=== PATIENT | female | born 1985 | race Two or more races ===

== ENCOUNTER 2024-01-20 07:04 | Emergency (ER) | payer MEDICAID ==
[~2024-01-20] VITALS: Ht 154.9 cm; Wt 84.5 kg
[2024-01-20 07:22] VITALS: TEMP 98.1
[2024-01-20 08:21] LABS: BASOPHILS % (AUTO) 0.9 % (0.0-2.0); EOSINOPHILS % (AUTO) 1.7 % (1.0-6.0); HEMATOCRIT 39.3 % (36-46); HEMOGLOBIN 13.3 g/dL (12.0-16.0); LYMPHOCYTES # (AUTO) 2.5 K/uL (1.0-4.8); LYMPHOCYTES % (AUTO) 28.4 % (22.0-44.0); MEAN CORPUSCULAR HEMOGLOBIN 29.8 pg (26.0-34.0); MEAN CORPUSCULAR HGB CONC 33.9 G/dL (31.0-37.0); MEAN CORPUSCULAR VOLUME 88 fL (80-100); MONOCYTES # (AUTO) 0.5 K/uL (0.1-1.0); MONOCYTES % (AUTO) 5.4 % (2.0-9.0); NEUTROPHILS # (AUTO) 5.7 K/uL (1.8-7.7); NEUTROPHILS % (AUTO) 63.6 % (40.0-70.0); PLATELET COUNT (AUTO) 288 K/uL (150-450); RED BLOOD CELL COUNT(AUTO) 4.47 MIL/uL (4.00-5.20); RED CELL DISTRIBUTION WIDTH 13.4 % (11.5-14.5); WHITE BLOOD COUNT (AUTO) 8.9 K/uL (4.5-11.0)
[2024-01-20 10:04] VITALS: BP 119/82; PULSE 72; RESP 16
== END 2024-01-20 14:38 | disposition home or self-care (01) ==
LOC: EMS 07:04
DX: O20.0 Threatened abortion (principal); Z3A.08 8 weeks gestation of pregnancy
CPT/HCPCS: 76801; 84702; 85025; 86901; 99284

== ENCOUNTER 2025-02-26 08:35 | Emergency (ER) | payer MEDICAID ==
[~2025-02-26] VITALS: Ht 154.9 cm; Wt 79.5 kg
[2025-02-26 09:46] LABS: PLATELET COUNT (AUTO) 299 K/uL (150-450); RED BLOOD CELL COUNT(AUTO) 4.65 MIL/uL (4.00-5.20); RED CELL DISTRIBUTION WIDTH 13.0 % (11.5-14.5); WHITE BLOOD COUNT (AUTO) 15.0 K/uL (4.5-11.0)
[2025-02-26 09:54] LABS: CALCIUM, TOTAL 8.5 mg/dL (8.8-10.5); CREATININE 0.59 mg/dL (0.60-1.30); GLOMERULAR FILTR. RATE CALC > 60 mL/min (>60); GLUCOSE,RANDOM 126 mg/dL (70-110); SODIUM SERUM 133 mmol/L (136-145); UREA NITROGEN, BLOOD 5 mg/dL (7-18)
[2025-02-26] MEDS: ACETAMINOPHEN 500 MG TABLET PO ONE (10:55)
[2025-02-26] MEDS: LIDOCAINE 5% TRANSDERMAL PATCH TD ONE (10:55)
[2025-02-26 11:52] LABS: APPEARANCE,URINE CLEAR (CLEAR); GLUCOSE, URINE (UA) NEGATIVE (NEGATIVE); LEUKOCYTE ESTERASE ,URINE NEGATIVE (NEGATIVE); NITRATE,URINE NEGATIVE (NEGATIVE); OCCULT BLOOD,URINE TRACE (NEGATIVE); SPECIFIC GRAVITIY, URINE 1.022 (1.003-1.030)
[2025-02-26 12:02] LABS: SQUAMOUS EPITHELIAL CELL,UR Many /LPF (None Seen)
[2025-02-26] MEDS ORDERED: LIDO-57 TP (12:48)
[2025-02-26] MEDS ORDERED: ACET-3385 PO (12:48)
[2025-02-26] MEDS ORDERED: PREN-223 PO (13:55)
[2025-02-26 14:15] VITALS: BP 118/68; PULSE 80; RESP 18; TEMP 98; O2SAT 97
== END 2025-02-26 14:21 | disposition still patient (30) ==
LOC: EMS 08:35
DX: M54.16 Radiculopathy, lumbar region (principal); M06.9 Rheumatoid arthritis, unspecified; N89.8 Other specified noninflammatory disorders of vagina
CPT/HCPCS: 76801; 80048; 81001; 84702; 85025; 99284

== ENCOUNTER 2025-02-28 08:20 | Emergency (ER) | payer MEDICAID ==
[~2025-02-28] VITALS: Ht 154.9 cm; Wt 79.5 kg
[~2025-02-28 08:20] MED LIST: ACET-3385 PO; LIDO-57 TP; PREN-223 PO
[2025-02-28 08:26] VITALS: BP 140/84; PULSE 80; RESP 16; TEMP 98.1; O2SAT 98
== END 2025-02-28 10:12 | disposition home or self-care (01) ==
LOC: EMS 08:21
DX: M54.30 Sciatica, unspecified side (principal); M19.90 Unspecified osteoarthritis, unspecified site; M06.9 Rheumatoid arthritis, unspecified; N89.8 Other specified noninflammatory disorders of vagina; Z79.899 Other long term (current) drug therapy; Z33.1 Pregnant state, incidental
CPT/HCPCS: 84702; 99283